=== PATIENT | male | born 1995 | race Caucasian/White ===

== ENCOUNTER 2024-04-21 10:51 | Outpatient (REF) | payer OTHER, SELFPAY ==
--- NOTE | ~2024-04-21 | US_ITS ---
EXAMINATION: US RETROPERITONEAL COMPLETE (RENAL) CLINICAL INFORMATION: Gross hematuria. COMPARISON: None available. TECHNIQUE: Real-time imaging of the kidneys and bladder. Limited visualization due to bowel gas. FINDINGS: RIGHT KIDNEY: 10.6 x 3.6 x 4.5 cm (SAG x AP x TRV). A 0.7 cm right lower pole nonobstructive calculus. No hydronephrosis. Renal cortical thickness is normal. Limited visualization. LEFT KIDNEY: 10.2 x 4.9 x 5.5 cm (SAG x AP x TRV). No hydronephrosis. No renal calculi. Renal cortical thickness is normal. Limited visualization. BLADDER: Partially distended. Bilateral ureteral jets are demonstrated. Prevoid bladder volume is 166 mL. There is no postvoid residual. The prostate volume is 15 mL. US/US retroperitoneal comp IMPRESSION: A 0.7 cm right renal lower pole nonobstructive calculus. No hydronephrosis. CT scan should be considered for further evaluation for this patient with gross hematuria.
== END 2024-04-21 10:52 | disposition home or self-care (01) ==
LOC: HO.UMASIMG 10:51
PROVIDERS: Visit Provider Internal Medicine
DX: R31.0 Gross hematuria (principal)
CPT/HCPCS: 76770

== ENCOUNTER 2024-05-26 08:33 | Outpatient (REF) | payer OTHER, SELFPAY ==
--- NOTE | ~2024-05-26 | US_ITS ---
EXAMINATION: US RETROPERITONEAL COMPLETE (RENAL) CLINICAL INFORMATION: Follow-up renal calculi.. COMPARISON: Renal ultrasound dated 04/21/2024. TECHNIQUE: Real-time imaging of the kidneys and bladder. FINDINGS: RIGHT KIDNEY: 11.0 x 3.9 x 6.0 cm (SAG x AP x TRV). The kidney is normal in size, contour, and echogenicity. Renal cortical thickness is normal. No calculi or focal parenchymal lesions. No hydronephrosis. LEFT KIDNEY: 10.5 x 5.2 x 4.8 cm (SAG x AP x TRV). The kidney is normal in size, contour, and echogenicity. Renal cortical thickness is normal. No calculi or focal parenchymal lesions. No hydronephrosis. BLADDER: Well distended and normal. Bilateral ureteral jets are demonstrated. Prevoid bladder volume is 150 mL. Postvoid bladder volume is 56 mL. A 1.1 cm coarse central prostate calcification is noted. US/US retroperitoneal comp IMPRESSION: 1. Unremarkable ultrasound appearance of the kidneys. 2. There is a borderline increased postvoid residual volume.
== END 2024-05-26 08:34 | disposition home or self-care (01) ==
LOC: HO.UMASIMG 08:33
PROVIDERS: Visit Provider Family Medicine
DX: N20.0 Calculus of kidney (principal)
CPT/HCPCS: 76770

== ENCOUNTER 2025-03-25 07:47 | Outpatient (REF) | payer OTHER, SELFPAY ==
--- NOTE | ~2025-03-25 | US_ITS ---
CLINICAL HISTORY: TESTICULAR PAIN US scrotum with Color and Duplex doppler. Comparison: None Technique: Real time sonographic imaging, including color-flow imaging, was performed by the hand worker. Multiple sales solutions representative static images were saved for review. Findings: Right testicle normal size and echotexture, 4.4 x 2.2 x 2.9 cm. Normal color flow. Normal arterial and venous spectral doppler waveforms. No testicular microlithiasis or intratesticular masses. Left testicle normal size and echotexture, 4.5 x 2.3 x 3.2 cm. Normal color flow. Normal arterial and venous spectral doppler waveforms. No testicular microlithiasis or intratesticular masses. Normal epididymides. No hydroceles No varicoceles. Impression: 1. Normal scrotal ultrasound. This document has been electronically signed by: Donnie Monreal MD on 03/26/2025 11:19:14
== END 2025-03-25 07:48 | disposition home or self-care (01) ==
LOC: HO.UMASIMG 07:47
PROVIDERS: Visit Provider Physician Assistant Medical
DX: N50.819 Testicular pain, unspecified (principal)
CPT/HCPCS: 76870

== ENCOUNTER → 2025-03-25 14:00 | Outpatient (BNV) | payer OTHER, SELFPAY | PROVIDERS: Visit Provider Radiology Diagnostic Radiology | DX: N50.819 Testicular pain, unspecified (principal) | CPT/HCPCS: 76870; 93975 ==